=== PATIENT | female | born 1970 | race Caucasian/White ===

== ENCOUNTER 2021-09-28 07:34 | Inpatient (IN) ==
[2021-09-28] MEDS ORDERED: Nitroglycerin 1,000 MCG/5 ML VIAL IV ONE (07:56)
[2021-09-28] MEDS ORDERED: *HR* Heparin 10,000 UNIT/10 ML VIAL ONE (07:56)
[2021-09-28] MEDS ORDERED: Heparin 1,000 UNITS/500 mL 500 ML ONE (07:56)
[2021-09-28] MEDS ORDERED: 0.9 % Sodium Chloride 2,000 ML ONE (07:56)
[2021-09-28] MEDS ORDERED: Iopamidol - 370 200 ML INFUS..BTL ONE ×2 (07:56→09:34)
[2021-09-28] MEDS ORDERED: *HR* FentaNYL (PF) 100 MCG/2 ML VIAL ONE (08:16)
[2021-09-28] MEDS ORDERED: *HR* Midazolam HCl 2 MG/2 ML VIAL ONE (08:16)
[2021-09-28] MEDS ORDERED: Tirofiban 12.5 MG/250ML 12.5 MG/250 ML BAG ONE (08:50)
[2021-09-28] MEDS ORDERED: Ondansetron 4 MG/2 ML VIAL ONE (08:56)
[2021-09-28] MEDS ORDERED: 0.9 % Sodium Chloride 1,000 ML ONE ×4 (08:58→09:51)
[2021-09-28] MEDS ORDERED: *HR* Nitroprusside 50 MG VIAL IVC ONE (09:07)
[2021-09-28] MEDS ORDERED: D5% in Water 250 ML ONE (09:07)
[2021-09-28] MEDS ORDERED: Perflutren Lipid Microsphere 1.3 ML in 0.9 % Sodium Chloride 8.7 ML IVP PRN ×2 (10:10→10:36)
[2021-09-28] MEDS ORDERED: methylPREDNISolone 125 MG/2 ML VIAL ONE ×2 (10:10→10:17)
[2021-09-28] MEDS ORDERED: *HR* Ticagrelor 90 MG TABLET PO ONE (10:36)
[2021-09-28] MEDS ORDERED: Naloxone 0.4 MG/ML INJ IVP PRN (10:36)
[2021-09-28] MEDS: FentaNYL (PF) 1,000 MCG/100 ML IV.SOLN IVC SCH ×2 (10:46→17:15)
[2021-09-28] MEDS: Midazolam HCl 50 MG/50 ML IV.SOLN IVC SCH ×2 (10:46→23:12)
[2021-09-28] MEDS ORDERED: *HR* Rocuronium Bromide 50 MG/5 ML VIAL IVP ONE (10:54)
[2021-09-28] MEDS ORDERED: Artificial Tears SOLN 15 ML BOTTLE BOTH EYES PRN (10:58)
[2021-09-28 11:27] LABS: ABG Base Excess -9 mEq/L (-2 to 3); ABG HCO3 19 mEq/L (21-27); ABG Oxygen Saturation 100 % (95-98); ABG PCO2 47 mmHg (35-45); ABG PH 7.21 pH Units (7.32-7.45); ABG PO2 270 mmHg (85-104); ABG TCO2 20 mEq/L (20-26); Blood Gas Modality ASSIST CONTROL; Blood Gas VT 380 cc
[2021-09-28 11:28] LABS: Hematocrit 34.8 % (35.3-44.9); Mean Corpuscular HGB Conc 31.6 g/dL (31.6-35.5); Mean Corpuscular Hemoglobin 27.8 pg (28.0-33.3); Mean Corpuscular Volume 88.1 fL (83.0-100.0); Mean Platelet Volume 9.8 fL (9.4-12.4); Platelet Count 397 K/mcL (140-400); Red Blood Count 3.95 M/mcL (3.82-4.97); Red Cell Distribution Width 13.2 % (11.5-14.5); White Blood Count 12.5 K/mcL (4.3-11.1)
[2021-09-28] MEDS: Cisatracurium 200 MG in 0.9 % Sodium Chloride 80 ML IVC SCH (11:37)
[2021-09-28 11:38] LABS: INR 1.2; Prothrombin Time 13.4 Seconds (9.4-12.1)
[2021-09-28 11:38] LABS: VBG Ionized Calcium 1.01 mmol/L (1.15-1.35)
[2021-09-28] MEDS: Artificial Tears SOLN 15 ML BOTTLE BOTH EYES SCH ×4 (11:43→23:54)
[2021-09-28] MEDS: levoFLOXacin 750 MG/150 ML 750 MG/150 ML BAG IVPB SCH (11:43)
[2021-09-28] MEDS: Pantoprazole 40 MG in 0.9 % Sodium Chloride Mini Bag 100 ML IVC SCH ×3 (11:43→21:30)
[2021-09-28] MEDS: Norepinephrine 4 MG/254 ML IV.SOLN IVC SCH (11:44)
[2021-09-28 12:35] LABS: Alanine Aminotransferase 66 Units/L (7-52); Albumin 3.2 g/dL (3.5-5.7); Albumin/Globulin Ratio 1.4 (1.1-2.2); Alkaline Phosphatase 58 Units/L (34-104); Aspartate Amino Transferase 223 Units/L (13-39); BUN/Creatinine Ratio 16 (6-26); Bilirubin,Direct 0.2 mg/dL (0.0-0.2); Bilirubin,Indirect 0.3 mg/dL (0.0-1.0); Bilirubin,Total 0.5 mg/dL (0.3-1.0); Blood Urea Nitrogen 11 mg/dL (6-20); Calcium 6.9 mg/dL (8.6-10.3); Carbon Dioxide 19 mEq/L (23-29); Chloride 112 mEq/L (98-107); Globulin 2.3 g/dL (2.4-3.5); Glucose 359 mg/dL (70-105); Osmolality,Calculated 302 (280-300); Potassium 3.6 mEq/L (3.5-5.1); Sodium 139 mEq/L (136-145); Total Protein 5.5 g/dL (6.4-8.9); eGFR For African Americans > 60 (> 60); eGFR For Non-African Americans > 60 (> 60)
[2021-09-28] MEDS ORDERED: Cangrelor tetrasodium 50 MG in 0.9 % Sodium Chloride 250 ML IVPB SCH (12:58)
[2021-09-28] MEDS ORDERED: D5% in Water 1,000 ML IVC PRN (13:01)
[2021-09-28] MEDS ORDERED: Dextrose Gel 15 GM/37.5 ML TUBE PO PRN ×2 (13:01)
[2021-09-28] MEDS ORDERED: *HR* Dextrose 50 % in Water (Syg) 50 ML SYRINGE IVP PRN (13:01)
[2021-09-28] MEDS ORDERED: Calcium Gluconate 1gm/50mL 1 GM/50 ML BAG IVPB ONE (13:02)
[2021-09-28 14:54] LABS: Hemoglobin 10.5 g/dL (11.5-15.4)
[2021-09-28] MEDS: methylPREDNISolone 125 MG/2 ML VIAL IVP SCH ×2 (15:07→23:55)
[2021-09-28] MEDS: MetroNIDAZOLE 500 MG/100 ML 500 MG/100 ML BAG IVPB SCH ×2 (15:09→23:55)
[2021-09-28] MEDS ORDERED: Insulin LISPRO 300 UNITS/3 ML VIAL SUBQ SCH ×2 (16:30→21:00)
[2021-09-28] MEDS: Cangrelor tetrasodium 50 MG in 0.9 % Sodium Chloride 250 ML IVPB SCH (18:05)
[2021-09-28] MEDS: Chlorhexidine Rinse 15 ML MOUTHWASH MM SCH (20:15)
[2021-09-28] MEDS: Insulin LISPRO 300 UNITS/3 ML VIAL SUBQ SCH ×2 (20:15→23:55)
[2021-09-29] MEDS: Cisatracurium 200 MG in 0.9 % Sodium Chloride 80 ML IVC SCH (00:45)
[2021-09-29] MEDS: FentaNYL (PF) 1,000 MCG/100 ML IV.SOLN IVC SCH ×4 (01:30→16:42)
[2021-09-29] MEDS: Pantoprazole 40 MG in 0.9 % Sodium Chloride Mini Bag 100 ML IVC SCH ×2 (02:03→07:20)
[2021-09-29 03:49] LABS: Basophils % 0.1 %; Hematocrit 30.7 % (35.3-44.9); Hemoglobin 10.2 g/dL (11.5-15.4); Immature Granulocytes % 0.6 % (0-4); Lymphocytes # 0.8 K/mcL (0.6-4.6); Lymphocytes % 8.2 %; Mean Corpuscular HGB Conc 33.2 g/dL (31.6-35.5); Mean Corpuscular Hemoglobin 28.4 pg (28.0-33.3); Mean Corpuscular Volume 85.5 fL (83.0-100.0); Mean Platelet Volume 9.8 fL (9.4-12.4); Monocytes # 0.3 K/mcL (0.0-1.3); Neutrophils # 8.6 K/mcL (1.6-8.9); Platelet Count 287 K/mcL (140-400); Red Blood Count 3.59 M/mcL (3.82-4.97); Red Cell Distribution Width 13.4 % (11.5-14.5); Segmented Neutrophils % 88.1 %; White Blood Count 9.8 K/mcL (4.3-11.1)
[2021-09-29 03:59] LABS: VBG HCO3 20 mEq/L (21-27); VBG PCO2 36 mmHg (41-51); VBG PH 7.36 pH Units (7.32-7.42); VBG PO2 219 mmHg (25-50)
[2021-09-29 04:10] LABS: Estimated Average Glucose 197 mg/dl; Hemoglobin A1C 8.5 %
[2021-09-29 04:14] LABS: Alanine Aminotransferase 91 Units/L (7-52); Albumin 3.1 g/dL (3.5-5.7); Albumin/Globulin Ratio 1.4 (1.1-2.2); Alkaline Phosphatase 49 Units/L (34-104); Aspartate Amino Transferase 244 Units/L (13-39); BUN/Creatinine Ratio 23 (6-26); Bilirubin,Direct 0.1 mg/dL (0.0-0.2); Bilirubin,Indirect 0.3 mg/dL (0.0-1.0); Bilirubin,Total 0.4 mg/dL (0.3-1.0); Blood Urea Nitrogen 13 mg/dL (6-20); Calcium 8.3 mg/dL (8.6-10.3); Carbon Dioxide 20 mEq/L (23-29); Chloride 114 mEq/L (98-107); Chol/HDL Ratio 5.7 (0-4.9); Cholesterol 131 mg/dL (< 200); Globulin 2.2 g/dL (2.4-3.5); Glucose 188 mg/dL (70-105); HDL Cholesterol 23 mg/dL (40-59); LDL Cholesterol,Calculated 75 mg/dL (< 100); Magnesium 1.6 mg/dL (1.6-2.6); Osmolality,Calculated 297 (280-300); Phosphorous 1.9 mg/dL (2.7-4.5); Potassium 3.7 mEq/L (3.5-5.1); Sodium 141 mEq/L (136-145); Total Protein 5.3 g/dL (6.4-8.9); Triglycerides 164 mg/dL (< 150); eGFR For African Americans > 60 (> 60); eGFR For Non-African Americans > 60 (> 60)
[2021-09-29 04:52] LABS: ABG Base Excess -3 mEq/L (-2 to 3); ABG HCO3 21 mEq/L (21-27); ABG Oxygen Saturation 100 % (95-98); ABG PCO2 36 mmHg (35-45); ABG PH 7.38 pH Units (7.32-7.45); ABG PO2 221 mmHg (85-104); ABG TCO2 23 mEq/L (20-26); Blood Gas Modality ASSIST CONTROL; Blood Gas VT 380 cc
[2021-09-29] MEDS: Insulin LISPRO 300 UNITS/3 ML VIAL SUBQ SCH ×6 (05:50→23:55)
[2021-09-29] MEDS: Artificial Tears SOLN 15 ML BOTTLE BOTH EYES SCH ×6 (05:51→23:42)
[2021-09-29] MEDS: Cangrelor tetrasodium 50 MG in 0.9 % Sodium Chloride 250 ML IVPB SCH ×2 (07:20→22:04)
[2021-09-29] MEDS: Norepinephrine 4 MG/254 ML IV.SOLN IVC SCH (07:24)
[2021-09-29] MEDS ORDERED: Potassium Phosphate 44 MEQ in 0.9 % Sodium Chloride 250 ML IVPB ONE (07:34)
[2021-09-29] MEDS: methylPREDNISolone 125 MG/2 ML VIAL IVP SCH (08:40)
[2021-09-29] MEDS: MetroNIDAZOLE 500 MG/100 ML 500 MG/100 ML BAG IVPB SCH ×3 (08:40→23:41)
[2021-09-29] MEDS: levoFLOXacin 750 MG/150 ML 750 MG/150 ML BAG IVPB SCH (08:40)
[2021-09-29] MEDS: Chlorhexidine Rinse 15 ML MOUTHWASH MM SCH ×2 (08:41→19:52)
[2021-09-29] MEDS ORDERED: Famotidine 20 MG TABLET PO SCH (10:45)
[2021-09-29 11:36] LABS: INR 1.2; Prothrombin Time 13.4 Seconds (9.4-12.1)
[2021-09-29] MEDS: Midazolam HCl 50 MG/50 ML IV.SOLN IVC SCH (11:49)
[2021-09-29 11:52] LABS: ABG Base Excess -4 mEq/L (-2 to 3); ABG HCO3 21 mEq/L (21-27); ABG Oxygen Saturation 100 % (95-98); ABG PCO2 37 mmHg (35-45); ABG PH 7.36 pH Units (7.32-7.45); ABG PO2 168 mmHg (85-104); ABG TCO2 22 mEq/L (20-26)
[2021-09-29 12:12] LABS: Hepatitis B Surface Antigen Nonreactive (Nonreactive)
[2021-09-29 12:41] LABS: Hepatitis B Core IgM Nonreactive (Nonreactive)
[2021-09-29 12:42] LABS: Hepatitis A Antibody IgM Nonreactive (Nonreactive); Hepatitis C Virus Antibody Nonreactive (Nonreactive)
[2021-09-29 15:17] LABS: Hematocrit 31.2 % (35.3-44.9)
[2021-09-29] MEDS: MethylPREDNISolone 40 MG/ML VIAL IVP SCH ×2 (15:34→23:41)
[2021-09-29] MEDS: Pantoprazole 40 MG VIAL IVP SCH (17:24)
[2021-09-29] MEDS: Famotidine 20 MG/2 ML VIAL IVP SCH (17:24)
[2021-09-29 20:20] LABS: Hematocrit 28.5 % (35.3-44.9); Hemoglobin 9.1 g/dL (11.5-15.4)
[2021-09-29 20:36] LABS: Phosphorous 2.6 mg/dL (2.7-4.5); Potassium 4.1 mEq/L (3.5-5.1)
[2021-09-30] MEDS: FentaNYL (PF) 1,000 MCG/100 ML IV.SOLN IVC SCH ×2 (00:10→06:32)
[2021-09-30 03:35] LABS: VBG Ionized Calcium 1.21 mmol/L (1.15-1.35)
[2021-09-30 03:38] LABS: Hematocrit 27.8 % (35.3-44.9); Hemoglobin 8.9 g/dL (11.5-15.4); Immature Granulocytes % 0.4 % (0-4); Lymphocytes # 0.8 K/mcL (0.6-4.6); Lymphocytes % 6.5 %; Mean Corpuscular Hemoglobin 27.5 pg (28.0-33.3); Mean Corpuscular Volume 85.8 fL (83.0-100.0); Monocytes # 0.4 K/mcL (0.0-1.3); Monocytes % 3.8 %; Neutrophils # 10.3 K/mcL (1.6-8.9); Platelet Count 269 K/mcL (140-400); Red Blood Count 3.24 M/mcL (3.82-4.97); Red Cell Distribution Width 13.8 % (11.5-14.5); Segmented Neutrophils % 89.3 %; White Blood Count 11.5 K/mcL (4.3-11.1)
[2021-09-30 03:55] LABS: Alanine Aminotransferase 87 Units/L (7-52); Albumin/Globulin Ratio 1.4 (1.1-2.2); Alkaline Phosphatase 42 Units/L (34-104); Aspartate Amino Transferase 128 Units/L (13-39); BUN/Creatinine Ratio 33 (6-26); Bilirubin,Total 0.3 mg/dL (0.3-1.0); Blood Urea Nitrogen 24 mg/dL (6-20); Calcium 8.3 mg/dL (8.6-10.3); Carbon Dioxide 20 mEq/L (23-29); Chloride 115 mEq/L (98-107); Globulin 2.1 g/dL (2.4-3.5); Glucose 206 mg/dL (70-105); Osmolality,Calculated 302 (280-300); Phosphorous 2.6 mg/dL (2.7-4.5); Potassium 4.1 mEq/L (3.5-5.1); Sodium 141 mEq/L (136-145); Total Protein 5.1 g/dL (6.4-8.9); eGFR For African Americans > 60 (> 60); eGFR For Non-African Americans > 60 (> 60)
[2021-09-30 04:25] LABS: ABG Base Excess -4 mEq/L (-2 to 3); ABG HCO3 20 mEq/L (21-27); ABG Oxygen Saturation 99 % (95-98); ABG PCO2 31 mmHg (35-45); ABG PH 7.42 pH Units (7.32-7.45); ABG PO2 119 mmHg (85-104); ABG TCO2 21 mEq/L (20-26); Blood Gas VT 380 cc
[2021-09-30] MEDS: Artificial Tears SOLN 15 ML BOTTLE BOTH EYES SCH ×5 (05:20→19:49)
[2021-09-30] MEDS: Insulin LISPRO 300 UNITS/3 ML VIAL SUBQ SCH ×5 (05:21→19:48)
[2021-09-30] MEDS: Pantoprazole 40 MG VIAL IVP SCH ×2 (05:24→17:47)
[2021-09-30] MEDS: Famotidine 20 MG/2 ML VIAL IVP SCH ×2 (05:24→17:47)
[2021-09-30] MEDS: Norepinephrine 4 MG/254 ML IV.SOLN IVC SCH ×2 (07:48→09:30)
[2021-09-30] MEDS: MethylPREDNISolone 40 MG/ML VIAL IVP SCH ×2 (07:59→19:47)
[2021-09-30] MEDS: Chlorhexidine Rinse 15 ML MOUTHWASH MM SCH ×2 (07:59→19:49)
[2021-09-30] MEDS: MetroNIDAZOLE 500 MG/100 ML 500 MG/100 ML BAG IVPB SCH (08:00)
[2021-09-30] MEDS: levoFLOXacin 750 MG/150 ML 750 MG/150 ML BAG IVPB SCH (08:00)
[2021-09-30 09:26] LABS: Hematocrit 27.8 % (35.3-44.9); Hemoglobin 9.1 g/dL (11.5-15.4)
[2021-09-30] MEDS: Cangrelor tetrasodium 50 MG in 0.9 % Sodium Chloride 250 ML IVPB SCH (10:10)
[2021-09-30] MEDS ORDERED: *HR* Metoprolol 5 MG/5 ML VIAL IVP SCH (12:00)
[2021-09-30] MEDS: Dexmedetomidine HCl 400 MCG/100 ML MLS IVC SCH ×2 (12:43→22:10)
[2021-09-30] MEDS ORDERED: *HR* Amiodarone 450 MG/9 ML VIAL IVC ONE (14:10)
[2021-09-30] MEDS ORDERED: *HR* Magnesium Sulfate 2 GM/50 ML PIGGYBACK IVPB ONE (14:10)
[2021-09-30] MEDS ORDERED: *HR* Amiodarone 150 MG/3 ML VIAL IVPB ONE (14:10)
[2021-09-30 15:04] LABS: Hemoglobin 9.6 g/dL (11.5-15.4)
[2021-09-30] MEDS: Amiodarone Premix 360 MG/200 ML BAG IVC ONE ×2 (15:48→21:11)
[2021-09-30] MEDS ORDERED: Perflutren Lipid Microsphere 1.3 ML in 0.9 % Sodium Chloride 8.7 ML IVP PRN ×2 (15:54→16:05)
[2021-09-30 16:00] LABS: Hematocrit 30.9 % (35.3-44.9); Hemoglobin 9.8 g/dL (11.5-15.4); Mean Corpuscular HGB Conc 31.7 g/dL (31.6-35.5); Mean Corpuscular Hemoglobin 27.8 pg (28.0-33.3); Mean Corpuscular Volume 87.8 fL (83.0-100.0); Platelet Count 359 K/mcL (140-400); Red Blood Count 3.52 M/mcL (3.82-4.97)
[2021-09-30 16:01] LABS: White Blood Count 20.8 K/mcL (4.3-11.1)
[2021-09-30 16:07] LABS: VBG Ionized Calcium 1.14 mmol/L (1.15-1.35)
[2021-09-30 16:18] LABS: INR 1.3; Prothrombin Time 14.5 Seconds (9.4-12.1)
[2021-09-30 16:22] LABS: BUN/Creatinine Ratio 32 (6-26); Blood Urea Nitrogen 28 mg/dL (6-20); Calcium 8.2 mg/dL (8.6-10.3); Carbon Dioxide 19 mEq/L (23-29); Chloride 114 mEq/L (98-107); Glucose 299 mg/dL (70-105); Magnesium 3.2 mg/dL (1.6-2.6); Osmolality,Calculated 311 (280-300); Phosphorous 2.7 mg/dL (2.7-4.5); Potassium 3.8 mEq/L (3.5-5.1); Sodium 142 mEq/L (136-145); eGFR For African Americans > 60 (> 60); eGFR For Non-African Americans > 60 (> 60)
[2021-09-30 16:28] LABS: Troponin I 46.98 ng/mL (< 0.04)
[2021-09-30] MEDS: *HR* Metoprolol 5 MG/5 ML VIAL IVP SCH (17:47)
[2021-09-30] MEDS ORDERED: Furosemide 20 MG/2 ML VIAL IVP ONE (18:25)
[2021-09-30] MEDS ORDERED: *HR* Labetalol 20 MG/4 ML SYRINGE IVP ONE (20:20)
[2021-09-30] MEDS: *HR* Labetalol 20 MG/4 ML SYRINGE IVP PRN (20:27)
[2021-09-30 20:56] LABS: Hematocrit 35.4 % (35.3-44.9); Hemoglobin 11.3 g/dL (11.5-15.4)
[2021-09-30] MEDS: Amiodarone Premix 360 MG/200 ML BAG IVC SCH (21:12)
[2021-09-30 21:20] LABS: ABG Base Excess -2 mEq/L (-2 to 3); ABG HCO3 21 mEq/L (21-27); ABG Oxygen Saturation 91 % (95-98); ABG PCO2 27 mmHg (35-45); ABG PH 7.49 pH Units (7.32-7.45); ABG PO2 54 mmHg (85-104); ABG TCO2 22 mEq/L (20-26)
[2021-10-01] MEDS: Cangrelor tetrasodium 50 MG in 0.9 % Sodium Chloride 250 ML IVPB SCH ×2 (00:16→14:16)
[2021-10-01] MEDS: Dexmedetomidine HCl 400 MCG/100 ML MLS IVC SCH ×3 (01:11→06:23)
[2021-10-01] MEDS: *HR* Metoprolol 5 MG/5 ML VIAL IVP SCH ×3 (02:17→11:28)
[2021-10-01] MEDS: Artificial Tears SOLN 15 ML BOTTLE BOTH EYES SCH ×8 (02:17→23:55)
[2021-10-01] MEDS: Insulin LISPRO 300 UNITS/3 ML VIAL SUBQ SCH ×7 (03:30→23:55)
[2021-10-01] MEDS: *HR* Labetalol 20 MG/4 ML SYRINGE IVP PRN ×4 (03:32→13:59)
[2021-10-01 03:43] LABS: VBG Ionized Calcium 1.13 mmol/L (1.15-1.35)
[2021-10-01 04:09] LABS: Hematocrit 28.5 % (35.3-44.9); Mean Corpuscular HGB Conc 32.3 g/dL (31.6-35.5); Mean Corpuscular Hemoglobin 27.8 pg (28.0-33.3); Mean Corpuscular Volume 86.1 fL (83.0-100.0); Mean Platelet Volume 10.2 fL (9.4-12.4); Platelet Count 277 K/mcL (140-400); Red Blood Count 3.31 M/mcL (3.82-4.97); Red Cell Distribution Width 13.4 % (11.5-14.5)
[2021-10-01 04:10] LABS: Hemoglobin 9.2 g/dL (11.5-15.4); White Blood Count 8.5 K/mcL (4.3-11.1)
[2021-10-01 04:25] LABS: BUN/Creatinine Ratio 32 (6-26); Blood Urea Nitrogen 27 mg/dL (6-20); Calcium 7.8 mg/dL (8.6-10.3); Carbon Dioxide 23 mEq/L (23-29); Chloride 109 mEq/L (98-107); Glucose 318 mg/dL (70-105); Magnesium 2.2 mg/dL (1.6-2.6); Osmolality,Calculated 305 (280-300); Potassium 4.3 mEq/L (3.5-5.1); Sodium 139 mEq/L (136-145); eGFR For African Americans > 60 (> 60); eGFR For Non-African Americans > 60 (> 60)
[2021-10-01] MEDS: Famotidine 20 MG/2 ML VIAL IVP SCH ×2 (05:22→17:13)
[2021-10-01] MEDS: Pantoprazole 40 MG VIAL IVP SCH (05:22)
[2021-10-01] MEDS ORDERED: Furosemide 20 MG/2 ML VIAL IVP ONE (07:12)
[2021-10-01] MEDS: MethylPREDNISolone 40 MG/ML VIAL IVP SCH (07:23)
[2021-10-01] MEDS: Chlorhexidine Rinse 15 ML MOUTHWASH MM SCH ×2 (07:24→19:44)
[2021-10-01] MEDS: Amiodarone Premix 360 MG/200 ML BAG IVC SCH ×2 (09:19→20:40)
[2021-10-01] MEDS: Insulin DETEMIR 100 UNIT/ML X5UNITS SUBQ SCH ×2 (11:21→20:13)
[2021-10-01] MEDS: Midazolam HCl 50 MG/50 ML IV.SOLN IVC SCH (11:26)
[2021-10-01] MEDS ORDERED: Ipratropium/Albuterol Neb 3 ML IH PRN (11:51)
[2021-10-01] MEDS ORDERED: *HR* Ticagrelor 90 MG TABLET PO ONE (12:00)
[2021-10-01] MEDS: Metoprolol XL (24 HR) Succ 50 MG TAB.ER.24H PO SCH (13:16)
[2021-10-01] MEDS ORDERED: Ondansetron 4 MG/2 ML VIAL ONE (20:05)
[2021-10-01] MEDS ORDERED: Ondansetron 4 MG/2 ML VIAL IVP ONE (20:09)
[2021-10-01] MEDS: *HR* Ticagrelor 90 MG TABLET PO SCH (20:11)
[2021-10-02] MEDS: *HR* Labetalol 20 MG/4 ML SYRINGE IVP PRN ×2 (03:45→06:21)
[2021-10-02] MEDS: Insulin LISPRO 300 UNITS/3 ML VIAL SUBQ SCH ×6 (04:18→23:47)
[2021-10-02 04:29] LABS: Hematocrit 27.9 % (35.3-44.9); Hemoglobin 9.3 g/dL (11.5-15.4); Mean Corpuscular HGB Conc 33.3 g/dL (31.6-35.5); Mean Corpuscular Hemoglobin 28.3 pg (28.0-33.3); Mean Corpuscular Volume 84.8 fL (83.0-100.0); Mean Platelet Volume 10.2 fL (9.4-12.4); Platelet Count 304 K/mcL (140-400); Red Blood Count 3.29 M/mcL (3.82-4.97); Red Cell Distribution Width 13.7 % (11.5-14.5); White Blood Count 12.4 K/mcL (4.3-11.1)
[2021-10-02 04:57] LABS: BUN/Creatinine Ratio 31 (6-26); Blood Urea Nitrogen 23 mg/dL (6-20); Calcium 8.2 mg/dL (8.6-10.3); Carbon Dioxide 24 mEq/L (23-29); Chloride 113 mEq/L (98-107); Glucose 122 mg/dL (70-105); Magnesium 2.1 mg/dL (1.6-2.6); Osmolality,Calculated 303 (280-300); Potassium 3.2 mEq/L (3.5-5.1); Sodium 144 mEq/L (136-145); eGFR For African Americans > 60 (> 60); eGFR For Non-African Americans > 60 (> 60)
[2021-10-02] MEDS: Famotidine 20 MG/2 ML VIAL IVP SCH (05:32)
[2021-10-02] MEDS: Insulin DETEMIR 100 UNIT/ML X5UNITS SUBQ SCH ×2 (08:25→21:02)
[2021-10-02] MEDS: Artificial Tears SOLN 15 ML BOTTLE BOTH EYES SCH (08:29)
[2021-10-02] MEDS: *HR* Ticagrelor 90 MG TABLET PO SCH ×2 (08:37→20:59)
[2021-10-02] MEDS: Chlorhexidine Rinse 15 ML MOUTHWASH MM SCH (08:38)
[2021-10-02] MEDS: Metoprolol XL (24 HR) Succ 50 MG TAB.ER.24H PO SCH (08:40)
[2021-10-02] MEDS: Amiodarone Premix 360 MG/200 ML BAG IVC SCH (08:52)
[2021-10-02] MEDS ORDERED: Furosemide 20 MG TABLET PO SCH (09:00)
[2021-10-02] MEDS ORDERED: MethylPREDNISolone 40 MG/ML VIAL IVP SCH (09:00)
[2021-10-02] MEDS ORDERED: Aspirin Enteric Coated 81 MG Tablet PO SCH (09:00)
[2021-10-02] MEDS ORDERED: predniSONE 20 MG TABLET PO SCH (09:00)
[2021-10-02] MEDS ORDERED: Pantoprazole 40 MG VIAL IVP SCH (09:00)
[2021-10-02] MEDS ORDERED: Famotidine 20 MG TABLET PO SCH (09:00)
[2021-10-02] MEDS ORDERED: Furosemide 20 MG TABLET PO ONE (09:29)
[2021-10-02] MEDS ORDERED: D5% in Water 1,000 ML IVC PRN (10:45)
[2021-10-02] MEDS ORDERED: Dextrose Gel 15 GM/37.5 ML TUBE PO PRN ×2 (10:45)
[2021-10-02] MEDS ORDERED: *HR* Labetalol 20 MG/4 ML SYRINGE IVP PRN (10:45)
[2021-10-02] MEDS ORDERED: Naloxone 0.4 MG/ML INJ IVP PRN (10:45)
[2021-10-02] MEDS ORDERED: Amiodarone Premix 360 MG/200 ML BAG IVC SCH (10:45)
[2021-10-02] MEDS ORDERED: *HR* Dextrose 50 % in Water (Syg) 50 ML SYRINGE IVP PRN (10:45)
[2021-10-02] MEDS ORDERED: Ipratropium/Albuterol Neb 3 ML IH PRN (10:45)
[2021-10-02] MEDS ORDERED: Metoprolol XL (24 HR) Succ 25 MG TAB.ER.24H PO ONE (11:00)
[2021-10-02] MEDS: Midazolam HCl 50 MG/50 ML IV.SOLN IVC SCH (11:21)
[2021-10-02] MEDS: Famotidine 20 MG TABLET PO SCH (20:59)
[2021-10-03] MEDS: Insulin LISPRO 300 UNITS/3 ML VIAL SUBQ SCH ×3 (05:20→12:19)
[2021-10-03 05:38] LABS: BUN/Creatinine Ratio 31 (6-26); Blood Urea Nitrogen 21 mg/dL (6-20); Calcium 8.5 mg/dL (8.6-10.3); Carbon Dioxide 23 mEq/L (23-29); Chloride 109 mEq/L (98-107); Glucose 112 mg/dL (70-105); Osmolality,Calculated 296 (280-300); Potassium 3.5 mEq/L (3.5-5.1); Sodium 141 mEq/L (136-145); eGFR For African Americans > 60 (> 60); eGFR For Non-African Americans > 60 (> 60)
[2021-10-03 05:43] LABS: Hematocrit 29.7 % (35.3-44.9); Hemoglobin 9.6 g/dL (11.5-15.4); Mean Corpuscular HGB Conc 32.3 g/dL (31.6-35.5); Mean Corpuscular Hemoglobin 27.4 pg (28.0-33.3); Mean Corpuscular Volume 84.6 fL (83.0-100.0); Mean Platelet Volume 10.2 fL (9.4-12.4); Platelet Count 318 K/mcL (140-400); Red Blood Count 3.51 M/mcL (3.82-4.97); Red Cell Distribution Width 13.6 % (11.5-14.5)
[2021-10-03] MEDS: *HR* Ticagrelor 90 MG TABLET PO SCH (08:48)
[2021-10-03] MEDS: Famotidine 20 MG TABLET PO SCH (08:48)
[2021-10-03] MEDS: Insulin DETEMIR 100 UNIT/ML X5UNITS SUBQ SCH (08:49)
[2021-10-03 08:52] VITALS: BP 156/98; O2SAT 96
[2021-10-03] MEDS ORDERED: predniSONE 20 MG TABLET PO SCH (09:00)
[2021-10-03] MEDS ORDERED: Metoprolol XL (24 HR) Succ 50 MG TAB.ER.24H PO SCH ×2 (09:00)
[2021-10-03] MEDS ORDERED: Furosemide 40 MG TABLET PO SCH ×2 (09:00)
[2021-10-03] MEDS ORDERED: Aspirin Enteric Coated 81 MG Tablet PO SCH (09:00)
[2021-10-03] MEDS ORDERED: predniSONE 10 MG TABLET PO SCH (09:00)
[2021-10-03 12:18] VITALS: TEMP 98
[2021-10-03 14:06] VITALS: PULSE 84
== END 2021-10-03 14:11 | disposition left against medical advice (07) | DRG 174 ==
LOC: ICNU 09:57
PROVIDERS: ADMIT Internal Medicine; ATTEND Internal Medicine